=== PATIENT | female | born 1990 | race Caucasian/White ===

== ENCOUNTER 2019-08-25 02:40 | Inpatient (IN) | payer BC ==
[2019-08-25] MEDS ORDERED: Lactated Ringers 1000 ML Bag* 1,000 ML IV ONE (03:11)
[2019-08-25] MEDS ORDERED: Buffered Lidocaine 1% SYRIN* 1 ML/SYRINGE INTRADERM ONE (03:11)
[2019-08-25] MEDS ORDERED: Oxytocin in LR* 20 UNITS/1,000 ML BAG IVPB ONE (03:18)
[2019-08-25 03:25] LABS: Hematocrit 38 % (35-47); Hemoglobin 13.1 g/dL (12.0-16.0); Mean Corpuscular HGB Conc 35 g/dL (31-36); Mean Corpuscular Hemoglobin 33 pg (27-31); Mean Corpuscular Volume 93 fL (80-97); Mean Platelet Volume 9.8 fL (7.4-10.4); Platelet Count 311 10^3/uL (150-450); Red Blood Count 4.02 10^6 /uL (3.70-4.87); Red Cell Distribution Width 13 % (10-15); White Blood Count 24.2 10^3/uL (3.5-10.8)
[2019-08-25] MEDS ORDERED: Witch Hazel PAD* JAR TOPICAL PRN (04:00)
[2019-08-25] MEDS ORDERED: Oxytocin in LR* 20 UNITS/1,000 ML BAG IVPB SCH (04:00)
[2019-08-25] MEDS ORDERED: Lactated Ringers 1000 ML Bag* 1,000 ML IV SCH ×2 (04:00)
[2019-08-25] MEDS ORDERED: Acetaminophen TAB* 325 MG PO PRN (04:00)
[2019-08-25] MEDS ORDERED: Glycerin ADULT SUPP PR PRN (04:00)
--- NOTE | 2019-08-25 04:07 | HP ---
General Information - Reason for Visit 28yo, @38+5 here in active labor - General Information Maternal Age: 28 Grav: 3 Para: 1 SAB: 0 IEA: 1 Estimated Due Date: 09/03/19 Determined By: Early Ultrasound Gestational Age in Weeks/Days: 38+5 Maternal Blood Type and Rh: A Positive - Results this Serology/RPR Result: Non-Reactive Rubella Result: Immune HBsAg Result: Negative HIV Result: Negative GBS Culture Result: Negative Past Medical History Delivery History: Hx Uncomplicated Vaginal Delivery Past Medical History Comment: Asthma kidney stones Past Surgical History Comment: Ganglion cyst - left wrist Family History Comment: PGM: skin cancer PGF: bladder cancer MGM: breast cancer, dx age 74 MGF: skin cancer, diabetes - Antepartal Records Antepartal Records: Reviewed, Complicated by: - excess weight gain, kidney stones, suspected macrosomia, dilation of right renal pelvis/ calyces, umbilical cord cyst, polyhydramnios Review of Systems Constitutional: Uncomfortable CV Complaint: No Respiratory: Shortness of Breath: No Gastrointestinal: No Nausea/Vomiting, Normal Bowel Movement Genitourinary: No Dysuria, No Bleeding, No Leaking Fluid Musculoskeletal: Contractions Neurological: No Headache Movement: Normal Exam Allergies/Adverse Reactions: Allergies No Known Allergies Allergy (Verified 03/06/14 18:14) temp 97.0, HR 97, RR 22, BP 141/80, 100% Lab Values - Entire Visit: Laboratory Tests 08/25/19 08/25/19 03:15 03:15 WBC 24.2 H RBC 4.02 Hgb 13.1 Hct 38 MCV 93 MCH 33 H MCHC 35 RDW 13 Plt Count 311 MPV 9.8 Blood Type A Positive Antibody Screen Negative - Measurements Height: 5 ft 10 in Weight: 220 lb Weight in lbs: 220.322502 Body Mass Index (BMI): 31.5 Pre- Weight: 177 lb Weight Gained This : 43 lbs and 0 ozs - Exam Breast: Breast Exam Deferred Extremities: Edema Heart: Normal Rhythm/Heart Sounds Rectal: Rectal Exam Deferred Reflexes: DTR 2+ - Abdominal Exam Abdomen Exam: Non-Tender - Ultrasound/Biophysical Profile Ultrasound Status: Not Done Targeted Exam Findings Estimated Weight: 10lbs Cervical Exam: 5cm Effacement: 80% Station: +1 Presenting Part: Vertex Membrane Status: Bulging Bleeding/Discharge: Bloody Show EFM Findings - External Monitor Findings Baseline Heart Rate: 145 External Monitor Findings: Accelerations Present, Variability Moderate, Baseline Stable External Monitor Findings Comment: No evidence of metabolic acidemia Contractions: Regular, Strong, 45-90 Seconds - q1-2 mins Assessment/Plan - Assessment 28yo, , IUP@38+5 here in active labor VSS, GBS negative, RI, A+ No evidence of metabolic acidemia Regular contractions Anticipate lang progression to complete and - Obstetrical Risk Factors Risk Factors Comment: suspected macrosomia, polyhydramnios - Plan Plan: Admit - Anticipate Vaginal Delivery Plan Comment: Admit to L&D Notify ped of anomalies Anticipate - Date/Time of Admission Date of Admission: 08/25/19 Time of Admission: 03:15
--- NOTE | 2019-08-25 04:20 | PROCNOTE ---
[facility] OB: Delivery Note - Delivery A Date of : 08/25/19 Time of : 03:44 Leigh Sex: Male Weight at : 9 lb 12 oz Score 1 Minute: 8 Score 5 Minutes: 9 Gestational Age in Weeks and Days at Delivery: 38 Weeks and 5 Days Delivery Method: Spontaneous Vaginal Labor: Spontaneous Did Patient attempt ?: N/A, No Previous Amniotic Fluid: Meconium Estimated Blood Loss: 250 Anesthesia/Analgesia: Nitrous-Labor Delivered By: Viri Menchaca - Nursery Level of Nursery: Regular/Bedside - Perineum Perineal Injury: 1st Degree Perineal Injury Comment: Not repaired per pt preference - Events Delivery Events of Note: Pitocin Only After Delivery - Additional Delivery Notes Additional Delivery Notes: Normal spontaneous vertex delivery of live LGA male, 9lbs 12oz gm and Apgars 8/ 9. Delivered left occipital-anterior (DIANA), meconium stained fluid. Body delivered without difficulty. Baby placed on mothers abdomen. Cord clamped and cut by delivering provider after pulsations ceased. Placenta delivered spontaneously via henriquez, appears intact, 3vc. Pitocin given via IVPB for active management of 3rd stage. Perineum and vagina inspected - first degree perineal laceration noted. Hemostatic, not repaired. EBL 250mL. Mom and baby stable at time of note. Baby attempting to breastfeed.
[2019-08-25 05:36] LABS: Urine Benzodiazepine Screen None Detected (None Detect); Urine Opiates Screen None Detected (None Detect)
[2019-08-25] MEDS: Ibuprofen TAB* 600 MG PO SCH ×3 (05:47→20:18)
[2019-08-25] MEDS: Dibucaine 1% 28.35 GM TUBE PR PRN ×2 (05:47→20:17)
[2019-08-25] MEDS ORDERED: Ammonia Inhalant* 1 EA AMP ONE (06:30)
[2019-08-25] MEDS ORDERED: Simethicone TAB* 80 MG TAB.CHEW PO SCH (08:30)
[2019-08-25] MEDS: Docusate CAP* 100 MG PO SCH ×3 (10:41→20:17)
[2019-08-26 08:04] LABS: ABS Eosinophils 0.1 10^3/ul (0-0.6); ABS Lymphocytes 2.1 10^3/ul (1.0-4.8); ABS Monocytes 0.7 10^3/ul (0-0.8); ABS Neutrophils 10.9 10^3/ul (1.5-7.7); Eosinophil % 0.5 %; Hematocrit 33 % (35-47); Hemoglobin 11.5 g/dL (12.0-16.0); Lymphocyte % 15.3 %; Mean Corpuscular HGB Conc 35 g/dL (31-36); Mean Corpuscular Hemoglobin 32 pg (27-31); Mean Corpuscular Volume 93 fL (80-97); Mean Platelet Volume 9.3 fL (7.4-10.4); Platelet Count 218 10^3/uL (150-450); Red Blood Count 3.57 10^6 /uL (3.70-4.87); Red Cell Distribution Width 14 % (10-15); White Blood Count 13.7 10^3/uL (3.5-10.8)
[2019-08-26] MEDS: Docusate CAP* 100 MG PO SCH (08:51)
[2019-08-26] MEDS: Ibuprofen TAB* 600 MG PO SCH (08:52)
[2019-08-26] MEDS ORDERED: Ferrous Gluconate TAB* 324 MG TAB PO SCH (09:00)
[2019-08-26 10:00] VITALS: BP 124/61
== END 2019-08-26 14:17 | disposition home or self-care (01) | DRG 560 ==
LOC: MCHOBOUT 02:40 → MCHOB 03:22
PROVIDERS: ADMIT Advanced Practice Midwife; ATTEND Advanced Practice Midwife
PROC: 10E0XZZ Delivery of Products of Conception, External Approach (ICD-10-PCS; principal; 2019-08-25)
PROC: 10907ZC Drainage of Amniotic Fluid, Therapeutic from Products of Conception, Via Natural or Artificial Opening (ICD-10-PCS; 2019-08-25)
DX: O60.20X0 Term delivery with preterm labor, unspecified trimester, not applicable or unspecified (principal); Z37.0 Single live birth; O40.9XX0 Polyhydramnios, unspecified trimester, not applicable or unspecified; O36.60X0 Maternal care for excessive fetal growth, unspecified trimester, not applicable or unspecified; O70.0 First degree perineal laceration during delivery; O77.0 Labor and delivery complicated by meconium in amniotic fluid; Z3A.38 38 weeks gestation of pregnancy
CPT/HCPCS: 36415; 80307; 85025; 85027; 86850; 86900; 86901; A9270-GY; G0480